=== PATIENT | female | born 1980 | race Asian ===

== ENCOUNTER 2017-03-31 04:38 | Inpatient (IN) | payer OTHER ==
[~2017-03-31] VITALS: Ht 165.1 cm; Wt 97.8 kg
[2017-03-31] MEDS ORDERED: LACTATED RINGERS 1,000 ML IV SCH ×3 (04:54→05:11)
[2017-03-31] MEDS ORDERED: LACTATED RINGERS 1,000 ML IVBOLUS ONE (05:00)
[2017-03-31] MEDS ORDERED: SODIUM CITRATE/CITRIC ACID 30 ML UDC PO ONE (05:00)
[2017-03-31] MEDS ORDERED: METOCLOPRAMIDE 5 MG/ML, 2ML IV ONE (05:00)
[2017-03-31] MEDS ORDERED: OXYTOCIN 30U/ 0.9% NaCL 500ML 500 ML IV SCH (05:11)
[2017-03-31] MEDS ORDERED: SODIUM CITRATE/CITRIC ACID 30 ML UDC ONE (05:12)
[2017-03-31] MEDS ORDERED: METOCLOPRAMIDE 5 MG/ML, 2ML ONE (05:12)
[2017-03-31] MEDS ORDERED: PNV11TAB PO (05:21)
[2017-03-31] MEDS ORDERED: NEWBORN KIT ONE (05:24)
[2017-03-31] MEDS ORDERED: OXYTOCIN 30U/ 0.9% NaCL 500ML 500 ML ONE (05:25)
[2017-03-31] MEDS ORDERED: MISOPROSTOL 200 MCG TABLET PR PRN (05:30)
[2017-03-31] MEDS ORDERED: ONDANSETRON 2MG/ML, 2ML IV PRN (05:30)
[2017-03-31] MEDS ORDERED: morphine SULFATE 10 MG/ML, 1ML IVPush PRN (05:30)
[2017-03-31] MEDS ORDERED: morphine SULFATE/PF 0.5 MG/ML, 10ML ONE (05:33)
[2017-03-31] MEDS ORDERED: CEFAZOLIN 1,000 MG ONE (05:34)
[2017-03-31 08:30] VITALS: BP 125/64
[2017-03-31] MEDS: PRENATAL VIT/IRON/FA 1 EACH TABLET PO SCH (09:00)
[2017-03-31 12:30] VITALS: BP 111/67
[2017-03-31 16:10] VITALS: BP 109/56
[2017-03-31] MEDS: KETOROLAC 30 MG/1 ML IV SCH ×2 (16:17→23:15)
[2017-03-31 22:00] VITALS: BP 115/76
[2017-03-31] MEDS: DOCUSATE 100 MG CAPSULE PO PRN (23:15)
[2017-04-01 01:00] VITALS: BP 112/65
[2017-04-01 04:00] VITALS: BP 119/76
[2017-04-01] MEDS: KETOROLAC 30 MG/1 ML IV SCH ×3 (04:50→10:47)
[2017-04-01 08:00] VITALS: BP 119/74
[2017-04-01] MEDS: PRENATAL VIT/IRON/FA 1 EACH TABLET PO SCH (08:29)
[2017-04-01] MEDS: DOCUSATE 100 MG CAPSULE PO PRN ×2 (08:29→22:10)
[2017-04-01] MEDS: OXYcodone IR 5MG TABLET PO PRN ×2 (10:47→10:55)
[2017-04-01] MEDS: IBUPROFEN 600 MG TABLET PO PRN ×3 (10:47→22:10)
[2017-04-01] MEDS: OXYcodone/APAP 5/325MG TABLET PO PRN ×2 (16:29→22:10)
[2017-04-01] MEDS ORDERED: DIPH,PERTUSS(ACELL),TET VAC/PF NC IM-VACC ONE (19:30)
[2017-04-01 20:00] VITALS: BP 127/81
[2017-04-02] MEDS: IBUPROFEN 600 MG TABLET PO PRN ×4 (04:13→23:47)
[2017-04-02] MEDS: OXYcodone/APAP 5/325MG TABLET PO PRN ×5 (04:35→23:47)
[2017-04-02 07:30] VITALS: BP 118/78
[2017-04-02] MEDS: DOCUSATE 100 MG CAPSULE PO PRN ×2 (08:32→21:00)
[2017-04-02] MEDS: PRENATAL VIT/IRON/FA 1 EACH TABLET PO SCH (08:32)
[2017-04-02] MEDS ORDERED: DIPH,PERTUSS(ACELL),TET VAC/PF NC IM-VACC ONE (15:49)
[2017-04-02 21:00] VITALS: BP 116/75
[2017-04-03] MEDS: OXYcodone/APAP 5/325MG TABLET PO PRN ×2 (05:20→09:08)
[2017-04-03 08:25] VITALS: BP 120/70
[2017-04-03] MEDS: DOCUSATE 100 MG CAPSULE PO PRN (09:08)
[2017-04-03] MEDS: IBUPROFEN 600 MG TABLET PO PRN (09:08)
[2017-04-03] MEDS: PRENATAL VIT/IRON/FA 1 EACH TABLET PO SCH (09:08)
[2017-04-03] MEDS ORDERED: IBUP-1222 PO (09:31)
[2017-04-03] MEDS ORDERED: OXYC-302 PO (09:33)
== END 2017-04-03 12:25 | disposition home or self-care (01) | DRG 766 ==
LOC: LDIP 04:38 → 2NW 08:25
PROVIDERS: ADMIT Obstetrics & Gynecology; ATTEND Obstetrics & Gynecology
PROC: 10D00Z1 Extraction of Products of Conception, Low, Open Approach (ICD-10-PCS; principal; 2017-03-31)
DX: O34.211 Maternal care for low transverse scar from previous cesarean delivery (principal); O42.92 Full-term premature rupture of membranes, unspecified as to length of time between rupture and onset of labor; O69.81X0 Labor and delivery complicated by cord around neck, without compression, not applicable or unspecified; Z37.0 Single live birth; Z3A.39 39 weeks gestation of pregnancy; Z23 Encounter for immunization
CPT/HCPCS: 36415; 85025; 86850; 86900; 90715; J0690; J1885; J2274; J2590; J2765; J7120